=== PATIENT | male | born 1955 | race American Indian/Alaskan Native ===

== ENCOUNTER 2018-12-11 05:28 | Day surgery (SDC) | payer BC, OTHER ==
[~2018-12-11 05:28] MED LIST: Dextrose 5%-0.45% NaCl 1,000 ML IV SCH; Sodium Chloride 0.9% 10 ML Syringe FLUSH PRN
[2018-12-11] MEDS ORDERED: Midazolam 1 MG/ML 2 ML SDV IV ONE ×5 (05:29→06:49)
[2018-12-11] MEDS ORDERED: fentaNYL 100 MCG/2 ML SDV IV ONE ×3 (05:29→06:39)
[2018-12-11] MEDS ORDERED: Midazolam 1 MG/ML 2 ML SDV ONE (06:19)
[2018-12-11] MEDS ORDERED: fentaNYL 100 MCG/2 ML SDV ONE (06:19)
[2018-12-11 10:23] VITALS: PULSE 69
[2018-12-11 10:24] VITALS: BP 130/82
--- NOTE | 2018-12-11 12:51 | OR ---
DATE: 12/11/2018 PROCEDURES: Total colonoscopy and cold snare polypectomy. INSTRUMENT USED: CF-HQ19D Olympus video colonoscope. PREMEDICATIONS: Fentanyl 100 mcg intravenous, Versed 3.5 mg intravenous, nasal O2 cannula. The procedure was done under pulse oximetry, BP recording, and newsroom intern. INDICATION: Screening colonoscopic examination is done for detection of any polypoid lesions and removal, endoscopic hemostasis therapy if needed. DESCRIPTION OF PROCEDURE: Initial rectal exam was unremarkable. Rigid anoscopy was normal. The colonoscope was passed with ease. A 3 mm sized benign- appearing rectal polyp was noted, photograph was taken, cold snare polypectomy was done, the tissue was retrieved and sent for histopathology. The scope was passed with ease up to the ileocecal area. Photographs were taken of the normal- appearing cecum identified by double-bulged ileocecal folds. No bleeding was noted from any of the visualized areas at the commencement of the examination. There was large amount of fecal material, some solid in consistency precluding adequate visualization of the colon, [place] scale 1 in all the regions. No stricture, no vascular ectasia. No large isolated ulcerations seen. No evidence of diffuse inflammatory bowel disease in the form of friability, contact bleeding, or ulcerations. Probing the proximal sides of folds and flexures using adequate distention and clearing of the stool material, withdrawal of the scope was made, cecum to rectum time over 6 minutes. No bleeding was noted from any of the visualized areas at the completion of examination. IMPRESSION: Diminutive rectal polyp. The patient tolerated the procedure well. [facility] /[id number]
--- NOTE | 2018-12-11 13:36 | LETTER ---
12/11/2018 Sunita Broussard MD [facility] [address] [place] [address] RE: LUIS LEE : [address] Broussard: Mr. Luis Patel Bucky Sr. had colonoscopic examination done this morning and he tolerated the procedure well. I herewith send a copy of the endoscopy note and photographs for your review. Thank you. Sincerely, [facility] /[id number]
== END 2018-12-11 09:01 | disposition home or self-care (01) ==
LOC: DL.ENDO 05:28
PROVIDERS: ATTEND Internal Medicine Gastroenterology
DX: Z12.11 Encounter for screening for malignant neoplasm of colon (principal); D12.8 Benign neoplasm of rectum
CPT/HCPCS: 45385; J2250; J3010; J7042

== ENCOUNTER → 2019-04-18 | Day surgery (SDC) | payer BC, OTHER ==
[~2019-04-18] MED LIST changes: +Midazolam 1 MG/ML 2 ML SDV IV ONE; +Midazolam 1 MG/ML 2 ML SDV ONE; +fentaNYL 100 MCG/2 ML SDV IV ONE; +fentaNYL 100 MCG/2 ML SDV ONE
[2019-04-18 09:39] VITALS: BP 130/79; PULSE 62
--- NOTE | 2019-04-18 13:23 | OR ---
DATE: 04/18/2019 PROCEDURE: Total colonoscopy. INSTRUMENT USED: PCF-H190DL Olympus video colonoscope. PREMEDICATIONS: Fentanyl 100 mcg intravenous, Versed 3 mg intravenous, nasal O2 cannula. The procedure was done under pulse oximetry, BP recording, and threat monitoring analyst. INDICATION: Screening colonoscopic examination is done for detection of any polypoid lesions and removal, endoscopic hemostasis therapy if needed. DESCRIPTION OF PROCEDURE: Initial rectal exam was unremarkable. Rigid anoscopy was normal. The colonoscope was passed with ease up to the ileocecal area. Photographs were taken of the normal-appearing cecum identified by landmarks of appendiceal orifice and double-bulged ileocecal folds. No bleeding was noted from any of the visualized areas at the commencement of the examination. The bowel preparation was found to be adequate, Christoval scale 2 in right and transverse colon, 3 in descending colon, total score of 7. No stricture. No vascular ectasia. No large isolated ulcerations seen. No evidence of diffuse inflammatory bowel disease in the form of friability, contact bleeding, or ulcerations. No polyp or tumor mass identified. Probing the proximal sides of folds and flexures using adequate distention, and clearing up the stool material, withdrawal of the scope was made. Cecum to rectum time over 6 minutes. No bleeding was noted from any of the visualized areas at the completion of examination. IMPRESSION: Normal study. The patient tolerated the procedure well. [facility] /[id number]
--- NOTE | 2019-04-18 13:47 | LETTER ---
04/18/2019 Sunita Broussard MD [facility] [address] [place] [address] RE: JESUSFABIO ZUÑIGA LINNETTE : [address] Broussard: Mr. Fabio Lawler had colonoscopic examination done this morning and he tolerated the procedure well. I herewith send a copy of the endoscopy note and photographs for your review. Thank you. Sincerely, [facility] /[id number]
== END ==
LOC: DL.ENDO 06:21
PROVIDERS: ATTEND Internal Medicine Gastroenterology
DX: Z12.11 Encounter for screening for malignant neoplasm of colon (principal)
CPT/HCPCS: 45378; J2250; J3010; J7042; G0121

== ENCOUNTER 2022-09-14 09:08 | Emergency (ER) | payer OTHER ==
[2022-09-14] MEDS ORDERED: Sodium Chloride 0.9% 10 ML Syringe FLUSH PRN (10:14)
[2022-09-14] MEDS ORDERED: Ondansetron 4 MG/2 ML SDV IV ONE (10:15)
[2022-09-14] MEDS ORDERED: Sodium Chloride 0.9% 1,000 ML IV ONE (10:15)
[2022-09-14] MEDS ORDERED: Ketorolac 30 MG/ML SDV IVPUSH ONE (10:15)
[2022-09-14] MEDS ORDERED: HYDROmorphone 1 MG/ML Syringe IVPUSH ONE (10:19)
[2022-09-14] MEDS ORDERED: Iopamidol 612 MG/ML 100 ML Bottle IVPUSH ONE (10:20)
[2022-09-14 10:30] LABS: APPEARANCE,URINE CLEAR (CLEAR); BILIRUBIN,URINE NEGATIVE (NEGATIVE); COLOR,URINE DARK YELLOW (YELLOW); GLUCOSE,URINE NEGATIVE (NEGATIVE); KETONES,URINE NEGATIVE (NEGATIVE); LEUKOCYTE ESTERASE,URINE NEGATIVE (NEGATIVE); NITRITE,URINE NEGATIVE (NEGATIVE); OCCULT BLOOD,URINE NEGATIVE (NEGATIVE); PROTEIN,URINE NEGATIVE (NEGATIVE); UROBILINOGEN,URINE 0.2 mg/dL (0.2-1.0)
[2022-09-14 10:34] LABS: HEMATOCRIT 45.8 % (40.0-54.0); HEMOGLOBIN 15.8 g/dL (14.0-18.0); MEAN CORPUSCULAR HEMOGLOBIN 29.4 pg (27.0-34.0); MEAN CORPUSCULAR HGB CONC 34.5 g/dL (33.0-35.0); MEAN CORPUSCULAR VOLUME 85.3 fL (80-100); PLATELET COUNT,PLT 105 10^3/uL (150-450); RED BLOOD CELL COUNT 5.37 10^6/uL (4.6-6.2); WHITE BLOOD CELL COUNT,WBC 20.1 10^3/uL (5.0-10.0)
[2022-09-14 10:48] LABS: BASOPHILS PERCENT AUTO 0.1 % (0.0-1.0); EOSINOPHILS PERCENT AUTO 0.3 % (1.0-3.0); LYMPHOCYTES PERCENT AUTO 2.7 % (20.5-50.1); MONOCYTES PERCENT AUTO 4.2 % (2-8); NEUTROPHILS PERCENT AUTO 92.7 % (42.2-75.2)
[2022-09-14 10:54] LABS: A/G RATIO 0.9; ALANINE AMINOTRANSFERASE,ALT 25 U/L (16-63); ALBUMIN 3.4 g/dL (3.4-5.0); ALKALINE PHOSPHATASE 83 U/L (46-116); ANION GAP 12.9 mEq/L (7-13); ASPARTATE AMNIOTRANSFERASE,AST 20 U/L (15-37); BILIRUBIN TOTAL 3.5 mg/dL (0.2-1.0); BLOOD UREA NITROGEN,BUN 25 mg/dL (7-18); BUN/CREATININE RATIO 15.1 (No establ ref range); CALCIUM 8.6 mg/dL (8.5-10.1); CARBON DIOXIDE,CO2 29 mmol/L (21-32); CHLORIDE,CL 97 mmol/L (98-107); CREATININE 1.66 mg/dL (0.70-1.30); GLUCOSE RANDOM 141 mg/dL (70-99); LIPASE 81 U/L (73-393); POTASSIUM,K 3.9 mmol/L (3.5-5.1); PROTEIN TOTAL,TP 7.4 g/dL (6.4-8.2); SODIUM,NA 135 mmol/L (136-145)
[2022-09-14 10:56] LABS: ESTIMATED GFR 46 mL/min (>=60)
[2022-09-14 10:58] LABS: BAND PERCENT MAN 26 %; LACTIC ACID 1.5 mmol/L (0.4-2.0); LYMPHOCYTES PERCENT MAN 4 % (20-50); MONOCYTES PERCENT MAN 2 % (2-8); SEG NEUTROPHILS PERCENT MAN 68 % (42-75)
[2022-09-14] MEDS ORDERED: Piperacillin/Tazobactam 4.5 GM in Sodium Chloride 0.9% 100 ML IV ONE (10:58)
== END 2022-09-14 12:30 ==
LOC: DL.ED 09:08
DX: K35.30 Acute appendicitis with localized peritonitis, without perforation or gangrene (principal); K21.9 Gastro-esophageal reflux disease without esophagitis; Z98.890 Other specified postprocedural states; Z79.899 Other long term (current) drug therapy
CPT/HCPCS: 36415; 74177; 80053; 81003; 83605; 83690; 84145; 85025; 96361; 96365; 96375; 99285-25; J1170; J2405; J2543; J3490; J7030; Q9967